=== PATIENT | female | born 1995 | race Caucasian/White ===

== ENCOUNTER 2022-09-06 17:25 | Emergency (ER) | payer MEDICAID, OTHER ==
[~2022-09-06] VITALS: Ht 162.6 cm; Wt 57.0 kg
[2022-09-07 00:36] LABS: BASOPHILS % 0.9 % (0.0-2.0); EOSINOPHILS % 1.1 % (0.0-5.0); HEMATOCRIT. 39.8 % (36.0-48.0); HEMOGLOBIN. 13.2 g/dL (12.0-16.0); LYMPHOCYTES % 40.2 % (20.0-50.0); MEAN CORPUSCULAR HEMOGLOBIN 29.7 pg (28.0-32.0); MEAN CORPUSCULAR VOLUME 89.7 fL (81.0-99.0); MEAN PLATELET VOLUME 10.9 fl (7.4-10.4); MONOCYTES % 6.7 % (2.0-8.0); NEUTROPHILS % 51.1 % (40.0-76.0); PLATELET 255 x1000/uL (130-400); RED BLOOD CELL COUNT 4.43 mill/uL (4.2-5.4)
[2022-09-07] MEDS ORDERED: METHYLPREDNISOLONE SOD SUCC 1,000 MG in DEXT 5% WATER 100 ML IV NR (01:00)
[2022-09-07 01:09] LABS: HCG SCREEN NEGATIVE
[2022-09-07 01:26] LABS: CHLORIDE 107 mEq/L (98-107)
[2022-09-07 02:49] VITALS: BP 110/65
== END 2022-09-07 03:26 | disposition short-term general hospital (02) ==
LOC: ER 17:45 → CANBEDREQ 09-08 08:06
DX: G35 Multiple sclerosis (principal); H46.9 Unspecified optic neuritis; Z20.822 Contact with and (suspected) exposure to COVID-19
CPT/HCPCS: 36415; 80053; 84703; 85025; 85610; 87426; 96365; 99285; C9803; J2930; J7060